=== PATIENT | female | born 1985 | race Caucasian/White ===

== ENCOUNTER 2020-11-01 07:21 | Emergency (ER) | payer MEDICAID ==
[~2020-11-01] VITALS: Ht 160 cm; Wt 54.5 kg
[2020-11-01] MEDS ORDERED: normal saline 1000ml 1,000 ML IV ONE (08:05)
[2020-11-01] MEDS ORDERED: albuterol 2.5 MG/3 ML nebule CONTNEB PRN ×2 (08:05→10:00)
[2020-11-01] MEDS ORDERED: methylPREDNISolone sod succ 125mg/2ml vial IV ONE (08:05)
[2020-11-01] MEDS ORDERED: magnesium 2GM in 50ml NS 50 ML IV ONE (10:00)
[2020-11-01 10:57] LABS: BASOPHILS % (AUTO) 0.3 % (0-1); EOSINOPHILS # (AUTO) 0.2 X10'3 (0-0.9); HEMATOCRIT 35.4 % (35.0-45.0); HEMOGLOBIN 10.9 g/dl (12.0-16.0); LYMPHOCYTES % (AUTO) 9.6 % (21-51); MEAN CORPUSCULAR HGB CONC 30.9 g/dL (33.0-36.5); MEAN CORPUSCULAR VOLUME 74.3 FL (78-98); MEAN PLATELET VOLUME 8.5 FL (7.4-10.4); MONOCYTES # (AUTO) 0.4 X10'3 (0-0.9); MONOCYTES % (AUTO) 3.7 % (2-12); NEUTROPHILS # (AUTO) 8.9 X10'3 (1.8-7.7); NEUTROPHILS % (AUTO) 84.4 % (42-75); PLATELET COUNT 459 X10'3 (140-440); RED BLOOD COUNT 4.76 X10'6 (4.20-5.60); RED CELL DISTRIBUTION WIDTH 16.1 % (11.5-14.5); WHITE BLOOD COUNT 10.6 X10'3 (4.5-11.0)
[2020-11-01 11:20] LABS: ANION GAP 9 (8-16); BLOOD UREA NITROGEN 8 MG/DL (7-18); BUN/CREATININE RATIO 13.3 (6.6-38.0); CHLORIDE 103 MMOL/L (99-107); GLUCOSE 128 MG/DL (70-104); POTASSIUM 3.7 MMOL/L (3.5-5.1); SODIUM 138 MMOL/L (135-145); TOTAL CARBON DIOXIDE 26.5 MMOL/L (24-32); eGFR > 90 ML/MIN
[2020-11-01 11:24] LABS: HCG SERUM QL NEGATIVE
--- NOTE | 2020-11-01 12:24 | NUR ---
Unhooked everything and took self to bathroom without notifying staff. found in bathroom. States she is breathing ok, communicated through bathroom door
--- NOTE | 2020-11-01 12:30 | NUR ---
Patient seen leaving by nancie Griffith who thought she was discharged. Security called as patient possible still has iv in place. Dr Treviño aware, is attempting to call mother. Security will review camera footage, patient not found in parking lot.
[2020-11-01] MEDS ORDERED: PRED20TA PO (12:33)
[2020-11-01] MEDS ORDERED: AZIT-63 PO (12:33)
[2020-11-01] MEDS ORDERED: ALBU8HFA PO (12:33)
--- NOTE | 2020-11-01 12:40 | NUR ---
Dr Treviño spoke with patient who stated she removed her own IV. Informed by MD that she may need to return if D Dimer is elevated Patient states understanding per Dr Treviño.
--- NOTE | 2020-11-01 13:30 | NUR ---
PT ELOPED FROM THE ER AND WAS CALLED BY PROVIDER TO COME BACK DUE TO ABNORMAL LABS. PT LEFT WITH PIV IN HER LT EJ, RETURNED AFTER PROVIDER PHONE CALL AND PIV REMAINS SECURE AND IS PATENT. PT CURRENTLY IN [id number]
[2020-11-01] MEDS ORDERED: iohexol 350MG/ML 100ml bottle IV ONE (14:01)
[2020-11-01 15:11] VITALS: BP 97/74
--- NOTE | 2020-11-01 15:11 | NUR ---
PT REFUSED COVID SWAB, DR SORTO NOTIFIED AND DC WAS GIVEN. PT DC HOME IN STABLE CONDITION AFTER PROVIDER SPOKE WITH PT REGARDING HER TESTS. PT INFORMED THAT SINCE SHE FUSED THE COVID SWAB THAT IT WAS STRONGLY RECOMMENDED BY DR SORTO THAT PT SELF QUARENTINE FOR 14 DAYS AND TO RETURN TO THE ER SHOULD HER SYMPTOMS WORSEN. PT'S RX WAS FAXED INTO [facility] ON [address] PER DR LONDONO. PT QUESTIONS ANSWERED AND STATED UNDERSTANDING. Addendum: 11/01/20 at 1515 by ADRIÁN EJ IN LT NECK WAS REMOVED WITHOUT COMPLICATION, CATHETER INTACT
== END 2020-11-01 15:10 | disposition home or self-care (01) ==
LOC: EDBD → ER 07:21 → MERGE 07:21 → ER 12:43
DX: J45.902 Unspecified asthma with status asthmaticus (principal); Z20.822 Contact with and (suspected) exposure to COVID-19; G43.909 Migraine, unspecified, not intractable, without status migrainosus; F17.200 Nicotine dependence, unspecified, uncomplicated; F15.90 Other stimulant use, unspecified, uncomplicated; F12.90 Cannabis use, unspecified, uncomplicated; Z87.01 Personal history of pneumonia (recurrent); Z79.899 Other long term (current) drug therapy; Z79.2 Long term (current) use of antibiotics
CPT/HCPCS: 36415; 71045; 71275; 80048; 84703; 85025; 85379; 94640; 96361; 96374; 96375; 99285; J2930; J3475; J7030; Q9967; 94760; 96365; A7015